=== PATIENT | female | born 1960 | race Caucasian/White ===

== ENCOUNTER 2018-11-24 16:06 | Emergency (ER) | payer SELFPAY ==
[~2018-11-24] VITALS: Ht 157.5 cm; Wt 95.0 kg
[~2018-11-24 16:06] MED LIST: ASPIRIN CHEWABL81 MG PO; ATORVASTATI80 MG/TAB PO; HYDROCHLORO25 MG/TAB PO; LISINOPRIL20 M1 PO
[2018-11-24] MEDS ORDERED: AMLODIPINE5 MG PO (16:40)
[2018-11-24] MEDS ORDERED: ATORVASTATIN CA80 MG PO (16:40)
[2018-11-24] MEDS ORDERED: PAROXETINE20 M1 PO (16:40)
[2018-11-24] MEDS ORDERED: LISINOPRIL20 M1 PO (16:41)
[2018-11-24] MEDS ORDERED: ADULT ASPIRIN E81 MG PO (16:41)
[2018-11-24 17:04] LABS: HEMATOCRIT 39.8 % (37.0-47.0); HEMOGLOBIN 12.8 g/dl (12.0-16.0); IMMATURE GRANULOCYTES 0.4 % (0.0-5.0); MEAN CELL VOLUME 92.3 fL CALC (80.0-100.0); MEAN CORPUSCULAR HGB 29.7 pG CALC (26.0-32.0); MEAN CORPUSCULAR HGB CONC 32.2 g/L CALC (32.0-36.0); NEUT# 11.54 thou/uL (2.00-7.15); RED BLOOD COUNT 4.31 mill/uL (4.20-5.60)
[2018-11-24 17:09] LABS: ALBUMIN 4.8 g/dL (3.2-5.0); ALKALINE PHOSPHATASE 95 u/l (38-126); AMYLASE 60 u/l (30-110); ANION GAP 17 (6-22 (CALC)); BILIRUBIN, TOTAL 0.8 mg/dL (0.0-1.4); BUN 22 mg/dL (7-17); BUN/CREATININE RATIO 21 (12-20 (CALC)); CARBON DIOXIDE 22 mmol/l (22-30); CHLORIDE 107 mmol/l (95-108); CREATININE 1.1 mg/dL (0.5-1.0); GFR 51 ML/MIN (>=60 (CALC)); GFR FOR AFR.AMER. > 60 ML/MIN (>=60 (CALC)); LIPASE 152 u/l (23-300); POTASSIUM 4.7 mmol/l (3.5-5.1); SGOT/AST 24 u/l (14-36); SODIUM 141 mmol/l (137-146)
[2018-11-24] MEDS ORDERED: PHENERGAN25 MG/TAB PO (19:57)
[2018-11-24 20:00] VITALS: BP 132/70
== END 2018-11-24 20:00 | disposition home or self-care (01) | DRG 392 ==
LOC: ED 16:06
PROVIDERS: Family Medicine
DX: K52.9 Noninfective gastroenteritis and colitis, unspecified (principal)

== ENCOUNTER 2019-11-21 | Emergency (ER) | payer SELFPAY ==
[~2019-11-21] MED LIST changes: +ADULT ASPIRIN E81 MG PO; +AMLODIPINE5 MG PO; +ATORVASTATIN CA80 MG PO; +PAROXETINE20 M1 PO; +PHENERGAN25 MG/TAB PO
== END 2019-11-22 04:30 | disposition short-term general hospital (02) | DRG 999 ==
DX: S72.421A Displaced fracture of lateral condyle of right femur, initial encounter for closed fracture (principal); S82.001A Unspecified fracture of right patella, initial encounter for closed fracture; I10 Essential (primary) hypertension; W01.0XXA Fall on same level from slipping, tripping and stumbling without subsequent striking against object, initial encounter; Y92.009 Unspecified place in unspecified non-institutional (private) residence as the place of occurrence of the external cause; Z86.73 Personal history of transient ischemic attack (TIA), and cerebral infarction without residual deficits
CPT/HCPCS: L1830

== ENCOUNTER 2019-12-12 01:18 | Observation (INO) | payer SELFPAY ==
[~2019-12-12] VITALS: Ht 157.5 cm; Wt 97.6 kg
[2019-12-12 02:02] LABS: HEMATOCRIT 35.1 % (37.0-47.0); HEMOGLOBIN 11.5 g/dl (12.0-16.0); IMMATURE GRANULOCYTES 0.3 % (0.0-5.0); MEAN CELL VOLUME 91.6 fL CALC (80.0-100.0); MEAN CORPUSCULAR HGB CONC 32.8 g/dL CAL (32.0-36.0); NEUT# 5.28 thou/uL (2.00-7.15); RED BLOOD COUNT 3.83 mill/uL (4.20-5.60); RED CELL DISTRI WIDTH 13.3 % (11.5-15.5)
[2019-12-12 02:20] LABS: ALKALINE PHOSPHATASE 127 u/l (38-126); AMYLASE 99 u/l (30-110); ANION GAP 12 (6-22 (CALC)); BILIRUBIN, TOTAL 0.8 mg/dL (0.0-1.4); BUN 19 mg/dL (8-23); BUN/CREATININE RATIO 19 (12-20 (CALC)); CARBON DIOXIDE 23 mmol/l (22-30); CHLORIDE 108 mmol/l (95-108); GFR 56 ML/MIN (>=60 (CALC)); GFR FOR AFR.AMER. > 60 ML/MIN (>=60 (CALC)); LIPASE 238 u/l (23-300); POTASSIUM 4.1 mmol/l (3.5-5.1); SGOT/AST 26 u/l (9-36); SODIUM 139 mmol/l (137-146); TOTAL PROTEIN 7.2 g/dL (6.3-8.2)
[2019-12-12 02:32] LABS: MYOGLOBIN 52 ng/mL (0 - 62)
[2019-12-12 02:36] LABS: ACT PARTIAL THROMBO TIME 29.9 SECONDS (20.0-32.5); D-DIMER 1.23 mg/L (0.19-0.60); PROTHROMBIN TIME 10.8 SECONDS (9.0-12.5)
[2019-12-12 06:20] VITALS: BP 172/73
[2019-12-12] MEDS ORDERED: LOPRESSOR50 M2 PO (09:33)
[2019-12-12] MEDS ORDERED: LIPITOR80 M1 PO (09:34)
[2019-12-12] MEDS ORDERED: PAROXETINE20 MG PO (09:34)
[2019-12-12] MEDS ORDERED: LISINOPRIL20 MG PO (09:35)
[2019-12-12 10:30] VITALS: BP 168/82
[2019-12-12] MEDS ORDERED: PANTOPRAZOLE SO40 M1 PO (11:29)
[2019-12-12 15:26] VITALS: BP 138/86
[2019-12-12 19:26] VITALS: BP 141/80
== END 2019-12-12 19:00 | disposition home or self-care (01) | DRG 313 ==
LOC: ED 01:18 → ED-I 01:44 → ED 05:43 → MS2 05:44
PROVIDERS: Family Medicine; Nurse Practitioner Family; ADMIT Internal Medicine; ATTEND Internal Medicine
DX: R07.2 Precordial pain (principal); R00.1 Bradycardia, unspecified; I10 Essential (primary) hypertension; E78.5 Hyperlipidemia, unspecified; S82.001D Unspecified fracture of right patella, subsequent encounter for closed fracture with routine healing; W19.XXXD Unspecified fall, subsequent encounter; Z86.73 Personal history of transient ischemic attack (TIA), and cerebral infarction without residual deficits
CPT/HCPCS: G0378

== ENCOUNTER 2022-10-26 23:18 | Emergency (ER) | payer OTHER ==
[~2022-10-26] VITALS: Ht 157.5 cm; Wt 102.0 kg
[~2022-10-26 23:18] MED LIST changes: +LIPITOR80 M1 PO; +LISINOPRIL20 MG PO; +LOPRESSOR50 M2 PO; +PANTOPRAZOLE SO40 M1 PO; +PAROXETINE20 MG PO
[2022-10-26] MEDS ORDERED: ASPIRIN81 MG PO (23:35)
[2022-10-26 23:46] VITALS: BP 151/73
[2022-10-27 01:18] VITALS: BP 151/73
== END 2022-10-27 02:13 | disposition home or self-care (01) ==
LOC: ED 23:18
DX: S01.01XA Laceration without foreign body of scalp, initial encounter (principal); S20.411A Abrasion of right back wall of thorax, initial encounter; S80.11XA Contusion of right lower leg, initial encounter; I10 Essential (primary) hypertension; E78.00 Pure hypercholesterolemia, unspecified; F41.0 Panic disorder [episodic paroxysmal anxiety]; W18.2XXA Fall in (into) shower or empty bathtub, initial encounter; Y93.E1 Activity, personal bathing and showering; Y92.002 Bathroom of unspecified non-institutional (private) residence as the place of occurrence of the external cause; Z86.73 Personal history of transient ischemic attack (TIA), and cerebral infarction without residual deficits

== ENCOUNTER 2022-11-27 13:48 | Emergency (ER) | payer OTHER ==
[~2022-11-27] VITALS: Ht 157.5 cm; Wt 103.0 kg
[~2022-11-27 13:48] MED LIST changes: +ASPIRIN81 MG PO
[2022-11-27] MEDS ORDERED: HYDROCHLOROTHIA50 MG PO (13:59)
[2022-11-27 14:04] VITALS: BP 136/76
[2022-11-27 14:16] VITALS: BP 115/74
[2022-11-27 14:30] VITALS: BP 128/75
[2022-11-27 14:46] VITALS: BP 128/64
[2022-11-27 15:01] VITALS: BP 138/68
[2022-11-27] MEDS ORDERED: PREDNISONE20 MG PO (15:04)
[2022-11-27] MEDS ORDERED: ZYRTEC10 MG PO (15:04)
[2022-11-27] MEDS ORDERED: PEPCID20 MG PO (15:04)
== END 2022-11-27 15:24 | disposition home or self-care (01) ==
LOC: ED 13:48
DX: L50.0 Allergic urticaria (principal); T50.2X5A Adverse effect of carbonic-anhydrase inhibitors, benzothiadiazides and other diuretics, initial encounter; I10 Essential (primary) hypertension; E78.00 Pure hypercholesterolemia, unspecified; Z86.73 Personal history of transient ischemic attack (TIA), and cerebral infarction without residual deficits